=== PATIENT | male | born 1950 | race African-American/Black ===

== ENCOUNTER 2024-10-29 08:11 | Emergency (ER) | payer OTHER ==
[~2024-10-29] VITALS: Ht 182.9 cm; Wt 70.0 kg
[2024-10-29 08:15] VITALS: TEMP 98.7; O2SAT 95
[2024-10-29] MEDS ORDERED: TOPUD PO (11:39)
[2024-10-29 11:54] VITALS: BP 142/83; PULSE 84; RESP 17; O2SAT 100
== END 2024-10-29 12:30 | disposition home or self-care (01) ==
LOC: ER 08:11
DX: S42.302A Unspecified fracture of shaft of humerus, left arm, initial encounter for closed fracture (principal); E78.00 Pure hypercholesterolemia, unspecified; I10 Essential (primary) hypertension; Z86.59 Personal history of other mental and behavioral disorders; X58.XXXA Exposure to other specified factors, initial encounter; Y93.9 Activity, unspecified; Y92.89 Other specified places as the place of occurrence of the external cause; Y99.8 Other external cause status
CPT/HCPCS: 29105; 73060; 99283; A4565